=== PATIENT | male | born 1990 | race Caucasian/White ===

== ENCOUNTER 2016-08-10 11:00 | Inpatient (IN) | payer OTHER ==
--- NOTE | ~2016-08-10 | PN ---
Unit #: [id number] #: [id number] Patient: RAFAEL BEDOYA [id number] [facility] [address] [place] [address] [id number] MR#: [id number] NAME: RAFAEL BEDOYA. ROOM: P252 Age: 26 Sex: M Admission Date: 08/10/2016 : 1990 Attending Physician: Pina Hughes M.D. Admitting Physician: Pina Hughes M.D. Primary Care Physician: [facility] PROGRESS NOTES DATE OF SERVICE: 08/12/2016 SUBJECTIVE Mr. Bedoya is a 26-year-old white male, who was seen today and chart was reviewed and the case was discussed with the staff. He has been anxious, withdrawn, and rather seclusive to himself and has been showing very poor insight into his situation. He was cooperative with treatment recommendations. MENTAL STATUS EXAMINATION Young white male, who was casually dressed with fair personal hygiene, appears to be in no acute distress or discomfort. He was awake and alert on interaction with intact orientation. His mood was anxious with congruent affect. He denies any suicidal or homicidal ideations. His insight and judgment remain significantly impaired. TREATMENT PLAN 1. We will continue him on his current medications and treatment protocol. We will monitor his response to medications and make further adjustments as needed. 2. We will continue to follow up. Dictated by... Evan Sultana/elenal TD: 08/13/2016 01:17 JOB #: [id number] [facility] PROGRESS NOTES Page 1 of 1 X Pina Hughes MD PROGRESS NOTE
--- NOTE | ~2016-08-10 | HP ---
Unit #: [id number] #: [id number] Patient: RAFAEL BANDA [id number] [place] [address] [id number] I MR#: [id number] NAME: RAFAEL BANDA. ROOM: [facility] Age: 26 Sex: M Admission Date: 08/10/2016 : 1990 Attending Physician: Pina Hughes M.D. Admitting Physician: Pina Hughes M.D. Primary Care Physician: Tomas Hernández Family HISTORY AND PHYSICAL HISTORY OF PRESENT ILLNESS The patient is a 26-year-old male admitted to [address] [place] [address] on 08-10-2016 for psychosis. The patient was medically sedated when I came to see him therefore much of the information was retrieved from his chart. PAST MEDICAL HISTORY 1. History of polysubstance use 2. Nicotine dependence PAST SURGICAL HISTORY None note. SOCIAL HISTORY Patient lives with his parents. He smokes one pack of cigarettes a day and has a history of polysubstance abuse. FAMILY MEDICAL HISTORY Noncontributory. ALLERGIES No known drug allergies. CURRENT MEDICATIONS Please see list of home medications. REVIEW OF SYSTEMS Patient unable to discuss. PHYSICAL EXAM GENERAL: He is sleeping quietly. VITAL SIGNS: Temperature 98.1, heart rate 90, respiration 18, blood pressure 152/76. HEIGHT: 5'11". WEIGHT: 220 pounds. SKIN: Warm and dry without rash or lesion. HEENT: Normocephalic. TMs not viewed. Oral and nasal passages clear. Conjunctivae clear. PERRLA. EOMs intact. NECK: Supple without lymphadenopathy or thyromegaly. HEART: Regular rate and rhythm. LUNGS: Clear to auscultation bilaterally. ABDOMEN: Soft, nontender. : Not done. EXTREMITIES: No evidence of cyanosis, clubbing or edema. Moves all Unit #: [id number] #: [id number] Patient: RAFAEL BANDA without focal deficit. NEUROLOGICAL: Grossly within normal limits. Cranial Nerves: II: Visual collins are intact. III, IV AND : Extraocular movements are intact. Pupils are equal, round and reactive to light. V: Facial sensation is grossly normal. VII: Facial movements and expression are normal. VIII: Auditory acuity grossly intact. IX, X: Uvula is midline. Phonation is normal. XI: Patient shrugs shoulders and turns head normally. XII: Tongue protrudes in the midline. Sensory and Motor Function: Sensory and motor sensation is grossly normal. Motor: moves all extremities well. IMPRESSION 1. Psychiatric admission. 2. History of polysubstance use. 3. Nicotine dependence. RECOMMENDATIONS Psychiatric per psychiatrist. MEDICAL: No contraindication to participate in facility activities. MEDICAL PROGNOSIS Fair. MEDICAL CONDITION Stable. Dictated by... Janet Daniel/maryse TD: 08/11/2016 03:22 JOB #: [id number] HISTORY AND PHYSICAL Page 1 of 1 X ELISABETH ALEXANDER APRN HISTORY AND PHYSICAL
--- NOTE | ~2016-08-10 | PN ---
Unit #: [id number] #: [id number] Patient: RAFAEL BEDOYA [id number] [facility] [address] [place] [address] [id number] I MR#: [id number] NAME: RFAAEL BEDOYA. ROOM: 32 Age: 26 Sex: M Admission Date: 08/10/2016 : 1990 Attending Physician: Pina Hughes M.D. Admitting Physician: Pina Hughes M.D. Primary Care Physician: [facility] PROGRESS NOTES DATE August 11, 2016 DISCUSSION Mr. Bedoya is a 26-year-old white male, who was seen today and chart was reviewed and the case was discussed with the staff. He has been anxious, withdrawn, and rather seclusive to himself. Meanwhile, he has been cooperative with the treatment recommendations, and he has been taking the medications and tolerating them fairly well with no reported side effects. MENTAL STATUS EXAMINATION Young white male, who was casually dressed with fair personal hygiene and appears to be in no acute distress or discomfort. He was awake and alert with impaired attention and concentration. His mood is anxious with a congruent affect. His speech is slow and restricted in content. His thought processes are disorganized with some looseness of associations. His insight and judgment remain significantly impaired. TREATMENT PLAN 1. We will continue him on his current medications and treatment protocol, and will monitor his response to the medications, and make further adjustments as needed. 2. We will continue to followup. Dictated by... Evan Sultana/destiny TD: 08/12/2016 05:50 JOB #: [id number] Unit #: [id number] #: [id number] Patient: RAFAEL BEDOYA [facility] PROGRESS NOTES Page 1 of 1 X Pina Hughes MD PROGRESS NOTE
--- NOTE | ~2016-08-10 | DS ---
Unit #: [id number] #: [id number] [facility] [id number] [facility] [place] [address] [id number] MR#: [id number] NAME: RAFAEL BEDOYA. ROOM: [facility] Age: 26 Sex: M Admission Date: 08/10/2016 : 1990 Discharge Date: 08/14/2016 Attending Physician: Pina Hughes M.D. Primary Care Physician: [facility] Family DISCHARGE SUMMARY IDENTIFYING DATA Mr. Bedoya is a 24-year-old single white male, who was self-referred to the hospital. DISCHARGE DIAGNOSES Psychiatric: Opioid dependence, moderate and acute withdrawals; methamphetamine dependence, moderate; methamphetamine-induced psychosis. Medical: None. Stressors: Moderate psychosocial stressors. HISTORY OF PRESENT ILLNESS Please see initial psychiatric evaluation for details. PAST PSYCHIATRIC HISTORY Please see initial psychiatric evaluation for details. PAST MEDICAL HISTORY Please see initial psychiatric evaluation for details. HOSPITAL COURSE The patient was admitted to the adult psychiatric unit at [facility] and was oriented to the hospital environment. Routine p.r.n. medications were initiated and upon initial presentation, the patient was seen to be acutely psychotic, agitated, hostile, and aggressive, and threatening to leave and was initially put on 72 hours hold and Risperdal was started as a mood stabilizer and antipsychotic and he was taking the medication and was able to slowly calm himself down and was showing better cooperation with treatment recommendations and was able to sign himself in after 72 hours hold , and then was wanting to go home and was willing to continue treatment on an outpatient basis and as such, it was decided that he will be discharged home and will continue treatment on an outpatient basis. DISCHARGE MEDICATIONS Risperdal 1 mg b.i.d. DISCHARGE CONDITION Stable. PROGNOSIS Fair. Unit #: [id number] #: [id number] Patient: RAFAEL BEDOYA Dictated by... Evan Sultana/modl TD: 08/14/2016 23:58 JOB #: [id number] DISCHARGE SUMMARY Page 1 of 1 X Pina Hughes MD DISCHARGE SUMMARY
--- NOTE | ~2016-08-10 | PN ---
Unit #: [id number] #: [id number] Patient: RAFAEL BEDOYA [id number] [facility] [address] [place] [address] [id number] MR#: [id number] NAME: RAFAEL BEDOYA. ROOM: P252 Age: 26 Sex: M Admission Date: 08/10/2016 : 1990 Attending Physician: Pina Hughes M.D. Admitting Physician: Pina Hughes M.D. Primary Care Physician: [facility] PROGRESS NOTES DATE August 13, 2016 DISCUSSION Mr. Bedoya is a 26-year-old white male, who was seen today and chart was reviewed and the case was discussed with the staff. He has been anxious, withdrawn, and rather seclusive to himself but has been doing much better in his mood and agitation, and aggression. He has been taking the medications and tolerating them fairly well with no reported side effects. MENTAL STATUS EXAMINATION Young white male, who was casually dressed with fair personal hygiene and appears to be in no acute distress or discomfort. He was awake and alert on interaction with intact orientation. His mood is anxious with a congruent affect. He denies any suicidal or homicidal ideations, and also denies any auditory or visual hallucinations. His insight and judgment remain slightly impaired. TREATMENT PLAN 1. We will continue him on his current medications and treatment protocol, and will monitor his response to the medications, and make further adjustments as needed. 2. We will continue to followup. Dictated by... Evan Sultana/destiny TD: 08/13/2016 12:11 JOB #: [id number] Unit #: [id number] #: [id number] Patient: RAFAEL BEDOYA [facility] PROGRESS NOTES Page 1 of 1 X Pina Hughes MD PROGRESS NOTE
--- NOTE | ~2016-08-10 | PA ---
Unit #: [id number] #: [id number] Patient: RAFAEL BEDOYA [id number] [facility] [address] [place] [address] [id number] Garry MR#: [id number] NAME: RAFAEL EBDOYA. ROOM: P132 Age: 26 Sex: M Admission Date: 08/10/2016 : 1990 Date of Assessment: 08/10/2016 Attending Physician: Pina Hughes M.D. Admitting Physician: Pina Hughes M.D. Primary Care Physician: Tomas Hernández Family PSYCHIATRIC ASSESSMENT DATE OF SERVICE 08/10/2016. IDENTIFYING DATA Mr. Bedoya is a 26-year-old single white male, who is a resident of [place], [place] and was self-referred to the hospital accompanied by his mother. CHIEF COMPLAINT "I've been up and down trying to stay sober." HISTORY OF PRESENT ILLNESS Mr. Bedoya is a 26-year-old white male with history of substance abuse and dependence, who is known to me from previous encounter, was brought to the hospital by his mother. The patient reports struggling with his sobriety and "I tripped today and fell into a window. It broke and I did not fall out and my dad came in, and I did not like my dad and my mom. I have a lot of anger, everything crept up and I freak out and I got in the car, because she would not stop crying. I felt like a piece of shit, because of her crying." The patient was found yelling outside, but went North and a silent code was called and a passerby had called crisis intervention team of [facility] Police and the patient was yelling and acting bizarre and was unable to sit still and did not answer most of the questions. He lives with his parents and reports his mom is overreactive "I do not like my father. He is one of those I told you so guys." He was seen to be agitated, irritable, and aggressive and hostile, and acutely psychotic with bizarre behavior, and was seen to be danger to self and others and as such, recommendation for inpatient level of care for safety and stabilization was made and the patient was stepped up to the inpatient unit. SUBSTANCE ABUSE HISTORY The patient has extensive history of substance abuse and dependence including alcohol, cannabis, cocaine, opioids, and amphetamines, inhalants, and it appears that more recently, cocaine has been his drug of choice and reports that he used amphetamine within the last week as well. PAST PSYCHIATRIC HISTORY The patient has had history of multiple inpatient psychiatric hospitalizations at [facility] and [facility]; however, he has history of poor compliance with treatment recommendations, and currently he is not seeing a psychiatrist and is not taking any psychotropic medications. Unit #: [id number] #: [id number] Patient: RAFAEL BEDOYA PAST MEDICAL HISTORY No acute or chronic medical illnesses. ALLERGIES No known medication allergies. CURRENT MEDICATIONS None. PERSONAL AND SOCIAL HISTORY A 26-year-old white male, who reports that he lives at home with his parents and has fairly decent social support system. MENTAL STATUS EXAMINATION Young white male, who was casually dressed with fair personal hygiene, appears to be in no acute distress or discomfort. He was awake and alert on interaction with intact orientation to time, place, and person. His mood was anxious with congruent affect. His speech was fluent and tangential. His thought processes were disorganized with some looseness of associations and flight of ideas and suicidal ideations. His insight and judgment remain significantly impaired. DIAGNOSTIC IMPRESSION Psychiatric: Bipolar disorder, most recent episode depressed, recurrent, moderate, without psychotic features; opioid dependence, moderate; methamphetamine dependence, moderate; cocaine dependence, moderate. Medical: None. Stressors: Moderate psychosocial stressors. TREATMENT PLAN 1. The patient has presented with history of mood disorder and substance abuse and dependence and has been decompensating and will need inpatient hospitalization for safety and stabilization. We will start him back on his home medications. We will adjust the medications and monitor response. 2. Supportive therapy was provided to the patient. 3. Safe, structured, and nourishing environment will be provided. ESTIMATED LENGTH OF STAY 4 to 5 days. ABILITY TO HELP SELF Limited. WILLINGNESS TO HELP SELF The patient appears to be willing to help self. STRENGTHS 1. Communicative. 2. Cooperative. PROBLEMS 1. Chronic dysphoric symptoms. 2. Poor social support system. DISCHARGE CRITERIA This will be contingent upon the patient's ability to show resolution of his depression and psychosis and his ability to stay safe to himself, particularly after discharge from the hospital. Unit #: [id number] #: [id number] Patient: RAFAEL BEDOYA Dictated by... Evan Sultana/riley TD: 08/11/2016 07:49 JOB #: [id number] PSYCHIATRIC ASSESSMENT Page 1 of 1 X Pina Hughes MD PSYCHIATRIC ASSESSMENT
[2016-08-11 09:47] LABS: BASOPHIL% 0.6 % (0-2.5); EOSINOPHIL# 0.3 X10e3 (0-0.7); EOSINOPHIL% 4.9 % (0.0-7.0); HEMATOCRIT 45.4 % (38.0-50.0); HEMOGLOBIN 14.9 gm/dL (13.0-16.0); LYMPHOCYTE# 0.9 X10e3 (1.0-3.5); LYMPHOCYTE% 13.9 % (17.0-45.0); MEAN CORPUSCULAR HEMOGLOBIN 29.2 PG (28-34); MEAN CORPUSCULAR HGB CONC 32.8 g/dL (30-36); MEAN PLATELET VOLUME 8.5 FL (6.5-11.5); MONOCYTE# 0.8 X10e3 (0-1.0); NEUTROPHIL# 4.5 X10e3 (1.5-7.1); NEUTROPHIL% 68.6 % (40-75); PLATELET COUNT 193 X10e3 (140-420); RED CELL DISTRIBUTION WIDTH 12.7 % (11.0-15.5); WHITE BLOOD COUNT 6.5 X10e3 (4.0-10.5)
[2016-08-11 09:53] LABS: DIFF IND NO
[2016-08-11 10:09] LABS: THYROID STIMULATING HORMONE 0.39 uIU/ml (0.34-5.60)
[2016-08-11 10:16] LABS: FREE THYROXIN (T4) 1.36 ng/dL (0.58-1.64)
[2016-08-11 11:11] LABS: ALBUMIN SERUM 3.7 g/dL (3.5-5.0); BILIRUBIN,TOTAL 1.1 mg/dL (0.2-2.0); BUN/CREATININE RATIO 29.09; CALCIUM SERUM 8.9 mg/dL (8.4-10.2); CREATININE SERUM 1.1 mg/dL (0.6-1.4); GLOM FILT RATE Estimated 91.5 mL/min (>60)
[2016-08-12 12:46] LABS: URINE APPEARANCE CLEAR; URINE BILIRUBIN NEG (NEG); URINE BLOOD NEG (NEG); URINE COLOR YELLOW; URINE GLUCOSE NEG (NEG); URINE KETONE NEG (NEG); URINE LEUKOCYTE ESTERASE NEG (NEG); URINE NITRATE NEG (NEG); URINE PH 6.5 (5-8); URINE PROTEIN NEG (NEG); URINE SPECIFIC GRAVITY 1.018 (1.003-1.035)
[2016-08-12 13:00] LABS: AMPHETAMINE POS (NEG); BARBITURATES NEG (NEG); BENZODIAZEPINES NEG (NEG); COCAINE NEG (NEG); MARIJUANA POS (NEG); OPIATES NEG (NEG); TRICYCLIC ANTIDEPRESSANTS NEG (NEG); U METHADONE NEG (NEG)
== END 2016-08-14 10:30 | disposition home or self-care (01) | DRG 885 ==
LOC: P1S 12:28 → P2L 12:28 → P2S 12:28 → P1S 12:34 → P2L 08-12 12:43
PROVIDERS: Psychiatry & Neurology Psychiatry
DX: F31.9 Bipolar disorder, unspecified (principal); F11.20 Opioid dependence, uncomplicated; F14.20 Cocaine dependence, uncomplicated; F15.20 Other stimulant dependence, uncomplicated; F17.210 Nicotine dependence, cigarettes, uncomplicated
CPT/HCPCS: 80053; 80307; 81003; 84439; 84443; 85025